=== PATIENT | male | born 1965 | race Caucasian/White ===

== ENCOUNTER → 2022-05-20 08:04 | Outpatient (BNVA) | payer SELFPAY | PROVIDERS: Family Provider Urology; Visit Provider Dermatology | DX: Z01.89 Encounter for other specified special examinations (principal) ==

== ENCOUNTER → 2023-05-19 08:18 | Outpatient (BNVA) | payer SELFPAY | PROVIDERS: Family Provider Urology; PCP Nurse Practitioner Family; Visit Provider Dermatology | DX: Z01.89 Encounter for other specified special examinations (principal) ==

== ENCOUNTER → 2023-09-16 13:49 | Outpatient (BNVA) | payer SELFPAY | PROVIDERS: Family Provider Urology; PCP Nurse Practitioner Family; Visit Provider Nurse Practitioner Family | DX: I10 Essential (primary) hypertension (principal); E78.2 Mixed hyperlipidemia | CPT/HCPCS: 80053; 80061; 84443; 85025 ==

== ENCOUNTER → 2024-04-04 16:28 | Outpatient (BNVA) | payer SELFPAY | PROVIDERS: Family Provider Urology; PCP Nurse Practitioner; Visit Provider Nurse Practitioner | DX: Z12.5 Encounter for screening for malignant neoplasm of prostate (principal); I10 Essential (primary) hypertension | CPT/HCPCS: 80053; 80061; G0103 ==

== ENCOUNTER 2024-08-10 01:08 | Emergency (ER) | payer SELFPAY ==
[2024-08-10 01:12] VITALS: BP 168/102; PULSE 93; RESP 18; TEMP 36.7; O2SAT 97
--- NOTE | 2024-08-10 01:58 | ED_ITS ---
HPI - Epistaxis General: Chief complaint: Epistaxis Stated complaint: Nose Bleed Time Seen by Provider: 08/10/24 01:44 History of Present Illness: Patient presents to the ER with complaints of left-sided nosebleed for the last couple hours. Patient Nuys any blood thinner use but does report he is on blood pressure medicine his blood pressure is been higher today than normal. Patient states he does work in a dry [place] environment. Patient is only bleeding from the left side. Upon arrival to the ER patient actually had stopped bleeding. Patient denies any trauma to his nostrils. Related Data Previous Rx's ?Medication ?Instructions ?Recorded atorvastatin 20 mg tablet 20 mg PO DAILY #30 tabs 03/09 01/29 lisinopril 30 mg tablet 30 mg PO DAILY #30 tabs 03/09 01/29 Allergies Allergy/AdvReac Type Severity Reaction Status Date / Time No Known Allergies Allergy Verified 08/10/24 01:16 Review of Systems General: Reports: 10 or more systems reviewed and unremarkable except in HPI and below PFSH ED PFSH: Medical History Essential hypertension Hyperlipemia Surgical History History of orchiectomy, unilateral Left Family History Father Cancer colon Denies family history of Diabetes Hypertension Social History Smoking and tobacco/nicotine status: current every day tobacco/nicotine user smokeless tobacco Smokeless tobacco user: chewing tobacco Second hand smoke exposure: No Alcohol intake: former Substance/Drug Use: never Adopted: No Caregiver/support person: No Lives independently: Yes Household members: children Housing: House Marital status: Single Number of children: 2 Highest education level completed: 11th Grade service: No Current occupational status: employed Do you think of yourself as: Straight/Heterosexual Current gender identity: Male Special earl needs: No Physical Exam HENMT: COMMON NORMALS: normocephalic, atraumatic, hearing grossly normal bilaterally, external ears normal, Normal external nose present, moist oral mucous membranes and oropharynx normal; nasal mucous membranes&turbinates abnorm (Dried blood noted in left naris.) HEAD & SCALP: normocephalic and atraumatic NOSE: Normal external nose present; nasal mucous membranes&turbinates abnorm (Dried blood noted in left naris.) EXTERNAL EAR: Yes external ears normal Neck/C-Spine: COMMON NORMALS: full ROM, no lymphadenopathy, supple, no meningeal signs, no JVD and Thyroid normal THYROID: Thyroid normal Chest: COMMONS NORMALS: normal inspection of the chest and normal palpation of entire chest wall Resp: COMMON NORMALS: normal respiratory effort, No retractions, No use of accessory muscles and clear to auscultation bilaterally AUSCULTATION: clear to auscultation bilaterally Cardio: COMMON NORMALS: no JVD, regular rate, regular rhythm, S1 normal heart sound present, S2 normal heart sound present, No gallops present (Cardio), No clicks present (Cardio), No murmurs present (Cardio) and No rub (Cardio) RATE: regular rate RHYTHM: regular rhythm HEART SOUNDS: S1 normal heart sound present and S2 normal heart sound present Neuro: MENINGEAL SIGNS: Yes no meningeal signs Course Vital Signs: Vital signs: Vital Signs Temperature 98.0 F 08/10/24 01:12 Pulse Rate 93 08/10/24 01:12 Respiratory Rate 18 08/10/24 01:12 Blood Pressure 168/102 08/10/24 01:12 Pulse Oximetry 97 08/10/24 01:12 Oxygen Delivery Me thod Room Air 08/10/24 01:12 MDM - Epistaxis Medical Decision Making Patient's epistaxis stopped on its own. Patient was continued to be observed while in the ER. Once felt stable patient will be discharged home. Medical Records I reviewed the patient's medical records. Lab Data I reviewed the patient's lab results. No radiology studies performed this visit Discharge Plan Discharge Patient Disposition: Home Clinical Impression: Epistaxis, Essential hypertension Condition: Stable Prescriptions: No Action lisinopril 30 mg tablet 30 mg PO DAILY Qty: 30 5RF atorvastatin 20 mg tablet 20 mg PO DAILY Qty: 30 5RF Discharge Orders: Discharge ED (Routine); Ordered 08/10/24 Ordered By: Joel Sabillon Referrals: Fadi Noel, SPECIFICATIONS CHECKER-C [Primary Care Provider] - 1 week Patient Instructions: Epistaxis - Adult, Hypertension (ED) Activity Restrictions/Additional Instructions: Please use [id number] nasal saline to keep your nasal mucosa moist this will help prevent bleeding. Please check your blood pressure often keep a blood pressure log and take it with you to your next family practice appointment., A Thank you for choosing [facility] for your healthcare needs today. Please realize that you were seen in the emergency department and that we are providing you with an emergency medical screening exam and this may not be a complete and all exclusive of all testing and/or medical workup we may need to determine your element or severity of your illness. It is very important that you follow-up as instructed with your primary care provider or specialist for the additional evaluation and to discuss your medical treatment plan. You may return to the emergency department should you have concerns or if your condition changes or worsens in any way. Print Language: Lithuanian Coding Level of Care Code ED Customer Quality Engineer for Evelina Mcgill
[2024-08-10 02:18] VITALS: PULSE 84; O2SAT 97
== END 2024-08-10 02:19 | disposition home or self-care (01) ==
PROVIDERS: Emergency Provider Emergency Medicine; PCP Nurse Practitioner
DX: R04.0 Epistaxis (principal); I10 Essential (primary) hypertension; F17.220 Nicotine dependence, chewing tobacco, uncomplicated; E78.5 Hyperlipidemia, unspecified
CPT/HCPCS: 99281

== ENCOUNTER → 2024-09-12 16:48 | Outpatient (BNVA) | payer SELFPAY | PROVIDERS: PCP Nurse Practitioner; Visit Provider Nurse Practitioner | DX: I10 Essential (primary) hypertension (principal) | CPT/HCPCS: 80053; 85025 ==